=== PATIENT | female | born 1995 | race American Indian/Alaskan Native ===

== ENCOUNTER 2020-01-05 22:27 | Emergency (ER) | payer BC, SELFPAY ==
[2020-01-05 22:32] VITALS: BP 152/86; PULSE 121; RESP 16; TEMP 36.9; O2SAT 100
--- NOTE | 2020-01-05 22:33 | ED_ITS ---
HPI - Wound/Laceration General Chief Complaint: Wound/Laceration Stated Complaint: right leg pain Time Seen by Provider: 01/05/20 22:31 History of Present Illness HPI narrative: Painful swelling to the right hip. Started yesterday. She initially thought it was a bug bite, but it did not respond to the usual treatment with hydrocortisone cream. No trauma, fever. Related Data Allergies Allergy/AdvReac Type Severity Reaction Status Date / Time acetaminophen [From [place]] AdvReac Vomiting Verified 01/05/20 23:23 amoxicillin [From [facility]] AdvReac Vomiting Verified 01/05/20 23:23 hydrocodone [From [place]] AdvReac Vomiting Verified 01/05/20 23:23 NKDA Allergy Mild Other Uncoded 01/05/20 23:23 Review of Systems Review of Systems: All systems reviewed & are unremarkable except as noted in HPI and below Constitutional: Constitutional: Denies fever(s[facility] Social History Social History Smoking status: Former smoker Smoking end date: 07/10/17 Alcohol intake: current Exam Const: General: healthy appearing and alert Orientation/consciousness: patient oriented x3 HENMT: Head: normal to inspection Resp: Effort & Inspection: normal respiratory effort Skin: Other: 5 cm circular well circumscribed erythematous blanching plaque to right thigh. Neuro: General: patient oriented x3 and CN's II-XI intact bilaterally Speech: normal speech Course Vital Signs Vital signs: Vital Signs Temperature 36.9 C 01/05/20 22:32 Pulse Rate 121 H 01/05/20 22:32 Respiratory Rate 16 01/05/20 22:32 Blood Pressure 152/86 H 01/05/20 22:32 Pulse Oximetry 100 01/05/20 22:32 Temperature 36.8 C 01/05/20 23:24 Pulse Rate 78 01/05/20 23:24 Respiratory Rate 16 01/05/20 23:24 Blood Pressure 152/86 H 01/05/20 22:32 Pulse Oximetry 99 01/05/20 23:24 MDM - Wound/Laceration MDM Narrative Medical decision making narrative: Lesion is not clearly infectious, but given pain and failure to imrpove with hydrocortisone I think it is likely. No fluid collection on bedside ultrasound. I will initiate treatment for cellulitis. Discharge Plan Discharge Clinical Impression: Cellulitis Patient Disposition: Home, Self-Care Condition: Stable Instructions: Antibiotic Form, Cellulitis (ED) Prescriptions: New cephalexin [Keflex] 500 mg capsule 500 mg PO Q8H Qty: 20 RF: 0 Follow-up/Referrals: Saúl Gonzalez MD [Primary Care Provider] - Discharge Date/Time: 01/05/20 23:26
[2020-01-05] MEDS: CEPHALEXIN 500 MG CAPSULE PO (23:07)
[2020-01-05 23:24] VITALS: PULSE 78; RESP 16; TEMP 36.8; O2SAT 99
== END 2020-01-05 23:26 | disposition home or self-care (01) ==
PROVIDERS: Emergency Provider Emergency Medicine; PCP Family Medicine
DX: L03.115 Cellulitis of right lower limb (principal); Z87.891 Personal history of nicotine dependence
CPT/HCPCS: 99283; A9270

== ENCOUNTER 2025-01-17 11:22 | Outpatient (CLI) | payer OTHER, SELFPAY ==
--- NOTE | ~2025-01-17 | XR_ITS ---
Lumbosacral Spine: AP and lateral views Clinical History: Pain Findings: The normal lordotic curve is maintained. The vertebral bodies and posterior elements are i ntact. The intervertebral disc spaces are preserved. The sacroiliac joints are normally outlined. Impression: No significant abnormality. Reviewed, dictated and finalized at [facility]. Impression: No significant abnormality.
== END 2025-01-17 11:23 | disposition home or self-care (01) ==
LOC: MICIMG 11:23
PROVIDERS: PCP Family Medicine; Visit Provider Physician Assistant Medical
DX: M54.31 Sciatica, right side (principal)
CPT/HCPCS: 72100